=== PATIENT | female | born 1945 | race Hispanic/Latino ===

== ENCOUNTER 2024-06-10 05:38 | Day surgery (SDC) | payer MEDICARE ==
[2024-06-10] VITALS (11 sets, daily range): BP systolic 95–133; BP diastolic 46–57; PULSE 72–81; RESP 13–22; TEMP 97.5–97.8
[~2024-06-10] VITALS: Ht 160 cm; Wt 64.4 kg
[~2024-06-10 05:38] MED LIST: AMLO-258 PO; EMPA10TA PO; FINE10TA PO; LOSA1TAB42 PO; METO-391 PO; OMEP40CA21 PO
[2024-06-10] MEDS: 0.9%NACL 1000ML 1,000 ML IV ONE (06:52)
[2024-06-10] MEDS ORDERED: LIDOCAINE PF 100MG/5ML (2%) SYRINGE 5ML ONE (07:04)
[2024-06-10] MEDS ORDERED: proPOFol 10 MG/ML 20ML VIAL IV ONE (07:04)
[2024-06-10] MEDS ORDERED: phenylEPHRINE HCL 10 MG/ML 1ML VIAL IV ONE (07:12)
[2024-06-10] MEDS ORDERED: GLYCOPYRROLATE 0.2 MG/ML 5 ML VIAL ONE (07:57)
== END 2024-06-10 09:45 | disposition home or self-care (01) ==
LOC: DAH 05:38 → ENDO 05:38
PROVIDERS: ATTEND Internal Medicine
DX: R19.5 Other fecal abnormalities (principal); D12.3 Benign neoplasm of transverse colon; R93.2 Abnormal findings on diagnostic imaging of liver and biliary tract; D64.9 Anemia, unspecified; K29.70 Gastritis, unspecified, without bleeding; K56.690 Other partial intestinal obstruction; D12.8 Benign neoplasm of rectum; K57.30 Diverticulosis of large intestine without perforation or abscess without bleeding; K64.8 Other hemorrhoids; R93.3 Abnormal findings on diagnostic imaging of other parts of digestive tract; D49.0 Neoplasm of unspecified behavior of digestive system; R10.13 Epigastric pain; I10 Essential (primary) hypertension; J44.9 Chronic obstructive pulmonary disease, unspecified; E78.00 Pure hypercholesterolemia, unspecified; E11.9 Type 2 diabetes mellitus without complications; Z79.899 Other long term (current) drug therapy
CPT/HCPCS: 45381; 45380; 45385; 43239; 82948 ×2; J7030 ×2; J2001; J2704; J3490; J2371; A4620; A4215 ×2; A4223; A4657; A4222; A4221; A4663; A4606